=== PATIENT | male | born 1955 | race Caucasian/White ===

== ENCOUNTER 2016-07-31 12:04 | Day surgery (SDC) | payer OTHER ==
[2016-07-31] MEDS ORDERED: MIDAZOLAM 2 MG/2 ML VIAL IVP ONE (12:08)
[2016-07-31] MEDS ORDERED: NS 1,000 ML IV ONE (12:08)
[2016-07-31] MEDS ORDERED: BENZOCAINE UNIT DOSE SPRAY HURRICAINE MM ONE (12:08)
[2016-07-31] MEDS ORDERED: fentaNYL 100 MCG/2 ML INJ IVP ONE (12:08)
--- NOTE | 2016-07-31 18:22 | ECHO ---
[id number] [id number] + + [address] : : [facility] [address] : : [phone] + + Transesophageal Echocardiographic Report + ------+ :Name: NIKOLAS SKY WStudy Date: 07/31/2016 01:30 PM : : Hospital Admission Number: [id number] Locatio n: CVC: :: 1955 Gender: Male : :Age: 61 yrs Race: WH : :Reason For Study: Eval Aortic Valve : :History: Murmur, AI : + ------+ Left Ventricle There is mild concentric left ventricular hypertrophy. The left ventricular ejection fraction is normal. Atria Injection of contrast documented no interatrial shunt. The interatrial septum is intact with no evidence for an atrial septal defect. Mitral Valve The mitral valve is normal in structure and function. There is no evidence of mitral valve prolapse. There is no mitral valve stenosis. There is no mitral regurgitation noted. Tricuspid Valve The tricuspid valve is normal in structure and function. There is trace tricuspid regurgitation. Aortic Valve The aortic valve is trileaflet. There is a mild to moderate, hypermobile echodensity which appears on the right coronary cusp. There is no aortic stenosis. Severe aortic regurgitation. Pulmonic Valve The pulmonic valve is normal in structure and function. Pericardium There is no pericardial effusion. Conclusion A 2D transesophageal echocardiogram with color flow Doppler was performed. The left ventricular ejection fraction is normal. There is mild concentric left ventricular hypertrophy. Injection of contrast documented no interatrial shunt. The interatrial septum is intact with no evidence for an atrial septal defect. The mitral valve is normal in structure and function. The tricuspid valve is normal in structure and function. There is trace tricuspid regurgitation. The aortic valve is trileaflet. There is a mild to moderate, hypermobile echodensity which appears on the right coronary cusp. There is no aortic stenosis. Severe aortic regurgitation is present. The patient will have blood cultures performed, and if negative the patient could be considered for cardiac cath to rule out coronary disease prior to aortic valve replacement surgery. Final Reading Physician: Ammon Shoemaker signed on 07/31/2016 06:21 PM Ordering Physician: Grzegorz Duncan Performed By: Grzegorz Duncan MD
== END 2016-07-31 17:27 | disposition home or self-care (01) ==
LOC: FCATH 12:04
PROVIDERS: ATTEND Internal Medicine Cardiovascular Disease
PROC: B245ZZ4 Ultrasonography of Left Heart, Transesophageal (ICD-10-PCS; principal; 2016-07-31)
DX: I35.1 Nonrheumatic aortic (valve) insufficiency (principal); I25.10 Atherosclerotic heart disease of native coronary artery without angina pectoris; I10 Essential (primary) hypertension; E78.4 Other hyperlipidemia; I77.9 Disorder of arteries and arterioles, unspecified; Z86.73 Personal history of transient ischemic attack (TIA), and cerebral infarction without residual deficits; Z82.49 Family history of ischemic heart disease and other diseases of the circulatory system
CPT/HCPCS: J2250; J3010

== ENCOUNTER 2016-08-06 09:49 | Day surgery (SDC) | payer OTHER ==
[2016-08-06] MEDS ORDERED: diphenhydrAMINE 25 MG CAP PO ONE ×2 (09:50→10:09)
[2016-08-06] MEDS ORDERED: NS 1,000 ML IV ONE (09:50)
[2016-08-06] MEDS ORDERED: DIAZEPAM 5 MG TAB PO ONE (09:50)
[2016-08-06] MEDS ORDERED: ASPIRIN EC 325 MG TAB PO ONE ×2 (09:50→10:09)
[2016-08-06] MEDS ORDERED: FAMOTIDINE 20 MG TAB PO ONE (09:50)
[2016-08-06] MEDS ORDERED: DIAZEPAM 5 MG TAB ONE (10:09)
[2016-08-06] MEDS ORDERED: FAMOTIDINE 20 MG TAB ONE (10:09)
--- NOTE | 2016-08-06 10:10 | CPEKG ---
Heart Rate: 68 RR Interval: 882 P-R Interval: 200 QRSD Interval: 110 QT Interval: 400 QTC Interval: 426 P Ingalls: -11 QRS Ingalls: -18 T Wave Ingalls: 29 EKG Severity - ABNORMAL ECG - EKG Impression: SINUS RHYTHM EKG Impression: NONSPECIFIC INTRAVENTRICULAR CONDUCTION DELAY Electronically Signed By: Kwesi Ospina 06-Aug-2016 10:48:57
[2016-08-06 10:29] LABS: % IMMATURE GRANULYOCYTES 0.2 % (0.0-1.1); ABSOLUTE IMMATURE GRANULOCYTES 0.01 10^3/uL (0.00-0.10); ADD DIFF? NO; ADD MORPH? NO; ADD SCAN? NO; ATYPICAL LYMPHOCYTE FLAG 10 (0-99); FRAGMENT RBC FLAG 0 (0-99); HEMOGLOBIN 12.3 g/dL (13.7-17.5); LEFT SHIFT FLG 0 (0-99); LIPEMIA HEMOLYSIS FLAG 90 (0-99); MEAN CELL HEMOGLOBIN 30.2 pg (27.9-34.1); MEAN CELL HEMOGLOBIN CONCENTR. 34.2 g/dL (32.4-36.7); MEAN CELL VOLUME 88.5 fL (81.5-99.8); PLATELET CLUMPS FLAG 0 (0-99); PLATELET COUNT 207 10^3/uL (150-400); RED BLOOD CELL COUNT 4.07 10^6/uL (4.40-6.38); RED CELL DISTRIBUTION WIDTH 12.8 % (11.5-15.2)
[2016-08-06 10:40] LABS: ANION GAP 10 mEq/L (8-16); CALCIUM 9.6 mg/dL (8.5-10.4); CARBON DIOXIDE 22 mEq/l (22-31); CHLORIDE 109 mEq/L (97-110); CHOLESTEROL 126 mg/dL (140-220); CHOLESTEROL/HDL RATIO 3.32 RATIO (1.00-4.97); CREATININE 1.1 mg/dL (0.7-1.3); GLOMERULAR FILTRATION RATE > 60; GLUCOSE 92 mg/dL (70-100); HIGH DENSITY LIPOPROTEIN 38 mg/dL (40-65); LDL/HDL RATIO 1.74 RATIO (1.00-3.64); LOW DENSITY LIPOPROTEIN 66 mg/dL (80-100); MAGNESIUM 1.9 mg/dL (1.6-2.3); NON-HIGH DENSITY LIPOPROTEIN 88 mg/dL (90-129); POTASSIUM 4.1 mEq/L (3.5-5.2); SODIUM 141 mEq/L (134-144); TRIGLYCERIDE 114 mg/dL (40-150); VERY LOW DENSITY LIPOPROTEINS 22 mg/dL (8-25)
[2016-08-06] MEDS ORDERED: fentaNYL 100 MCG/2 ML INJ ONE ×3 (10:41→12:39)
[2016-08-06] MEDS ORDERED: LIDOCAINE 1% 300 MG/30 ML SDV ONE (10:41)
[2016-08-06] MEDS ORDERED: IOPAMIDOL (ISOVUE-370) 150 ML BTL IV ONE (10:42)
[2016-08-06] MEDS ORDERED: MIDAZOLAM 2 MG/2 ML VIAL ONE ×2 (10:42→11:25)
[2016-08-06 10:48] LABS: INR 1.1 (0.83-1.16); PROTIME(PATIENT) 14.1 SEC (12.0-15.0)
[2016-08-06] MEDS ORDERED: ATROPINE SULFATE 1 MG/10 ML SYR ONE (12:02)
[2016-08-06] MEDS ORDERED: fentaNYL 100 MCG/2 ML INJ IVP PRN (12:49)
--- NOTE | 2016-08-06 15:08 | CPIP ---
[f rep st] INVASIVE CARDIAC PROCEDURE DATE OF PROCEDURE: 08/06/2016 PROCEDURE: Left and right coronary arteriogram. COMPLICATIONS: None. CONDITION AT END OF STUDY: Excellent. INDICATIONS: The patient has wide open aortic insufficiency and has an abnormal calcium score with a calcium score of 500. He has been recommended to consider aortic valve replacement. He has wide open aortic insufficiency and a question of endocarditis. He has a mobile, possibly vegetative mass involving the aortic valve. The procedure was to do left and right coronary angiography. It was elected not to cross the aortic valve for fear of interfering with that vegetation and also not to do a left ventriculogram for fear of hurting him with embolic disease processes. He underwent the procedure with no complications. FINDINGS: ANGIOGRAPHY: 1. Left main coronary artery is normal. 2. Circumflex coronary artery is normal. 3. Left anterior descending artery is normal with no significant obstructive disease present at all. There is no significant plaque seen. 4. The right coronary artery is dominant and normal. Patient tolerated the procedure well and, at the time of dictation, is waking up from his anesthetic. /[id number]/MODL MTDD
== END 2016-08-06 18:23 | disposition home or self-care (01) ==
LOC: FCATH 09:49
PROVIDERS: ATTEND Internal Medicine
PROC: B2111ZZ Fluoroscopy of Multiple Coronary Arteries using Low Osmolar Contrast (ICD-10-PCS; principal; 2016-08-06)
DX: I35.1 Nonrheumatic aortic (valve) insufficiency (principal); I25.10 Atherosclerotic heart disease of native coronary artery without angina pectoris; I10 Essential (primary) hypertension; E78.4 Other hyperlipidemia
CPT/HCPCS: J0461; J1644; J2250; J3010; Q9967

== ENCOUNTER → 2016-08-24 | Outpatient (CLI) | payer OTHER | LOC: FIMAGING 11:46 | PROVIDERS: ATTEND Thoracic Surgery (Cardiothoracic Vascular Surgery) | DX: Z01.811 Encounter for preprocedural respiratory examination (principal); I35.1 Nonrheumatic aortic (valve) insufficiency; I25.10 Atherosclerotic heart disease of native coronary artery without angina pectoris ==

== ENCOUNTER 2016-08-31 05:55 | Inpatient (IN) | payer OTHER ==
[2016-08-31] MEDS ORDERED: NOREPINEPHRINE BITARTRATE 16 MG in NS 250 ML IV ONE (06:00)
[2016-08-31] MEDS ORDERED: SODIUM BICARBONATE 20 MEQ, LIDOCAINE 1% 10 ML in NORMOSOL-R 1,000 ML MISC ONE (06:00)
[2016-08-31] MEDS ORDERED: AMINOCAPROIC ACID 5 GM/20 ML VIAL IV ONE (06:00)
[2016-08-31] MEDS ORDERED: CITRATE DEXTROSE SOLN 500 ML BAG MISC ONE (06:00)
[2016-08-31] MEDS ORDERED: niCARdipine/NACL 200 ML IV ONE ×2 (06:00→23:00)
[2016-08-31] MEDS ORDERED: ceFAZolin 2 GM/DEXTROSE 100 ML IV ONE (06:00)
[2016-08-31] MEDS ORDERED: PHENYLEPHRINE HCL 50 MG in NS 250 ML IV ONE (06:00)
[2016-08-31] MEDS ORDERED: INSULIN REGULAR HUMAN 100 UNIT in NS 100 ML IV ONE (06:00)
[2016-08-31] MEDS ORDERED: MANNITOL 25% 12.5 GM/50 ML VIAL IV ONE (06:00)
[2016-08-31] MEDS ORDERED: LR 1,000 ML IV ONE (06:28)
[2016-08-31] MEDS ORDERED: LIDOCAINE 1% 2 ML INJ ID PRN (06:28)
[2016-08-31] MEDS ORDERED: PROTAMINE SULFATE 50 MG/5 ML VIAL IVP ONE (06:49)
[2016-08-31] MEDS ORDERED: ALBUMIN 5% 250 ML BOTTLE IV ONE ×2 (06:49→11:00)
[2016-08-31] MEDS ORDERED: MILRINONE/DEXTROSE/100 ML BAG IV ONE (06:50)
[2016-08-31] MEDS ORDERED: CALCIUM CHLORIDE 1 GM/10 ML INJ ONE (06:50)
[2016-08-31] MEDS ORDERED: POTASSIUM Cl (KCl) 20 MEQ/50 ML BAG IV ONE (06:50)
[2016-08-31] MEDS ORDERED: LIDOCAINE 2% 100 MG/5 ML SYR ONE ×2 (06:51→07:23)
[2016-08-31] MEDS ORDERED: AMINOCAPROIC ACID 5 GM/20 ML VIAL ONE (06:51)
[2016-08-31] MEDS ORDERED: NA BICARBONATE 50 MEQ/50 ML VIAL ONE (06:51)
[2016-08-31] MEDS ORDERED: CITRATE DEXTROSE SOLN 500 ML BAG ONE (06:52)
[2016-08-31] MEDS ORDERED: niCARdipine/NACL/200 ML BAG IV ONE ×2 (06:52→21:45)
[2016-08-31] MEDS ORDERED: DOPamine/DEXTROSE/250 ML BAG IV ONE (06:52)
[2016-08-31] MEDS ORDERED: MAGNESIUM SULFATE 1 GM/2 ML VIAL ONE (06:53)
[2016-08-31] MEDS ORDERED: ADENOSINE 6 MG/2 ML VIAL ONE (06:53)
[2016-08-31] MEDS ORDERED: methylPREDNISolone SOD SUCC 1 GM/8 ML VIAL ONE (06:53)
[2016-08-31] MEDS ORDERED: AMIODARONE HCL 150 MG/3 ML VIAL ONE (06:53)
[2016-08-31] MEDS ORDERED: HEPARIN 10,000 UNIT/10 ML MDV ONE (06:54)
[2016-08-31] MEDS ORDERED: ceFAZolin 1 GM VIAL ONE (06:54)
[2016-08-31] MEDS: MUPIROCIN 2% 22 GM OINT NS SCH ×3 (07:00→20:34)
--- NOTE | 2016-08-31 07:08 | PDANEPAE ---
ANE History of Present Illness severe AI, ? question vegitation, ANE Past Medical History - Cardiovascular History Cardiovascular History Comment: CAD-mild - Pulmonary History Hx COPD: No Hx Asthma/Reactive Airway Disease: No Hx Recent Upper Respiratory Infection: No Hx Oxygen in Use at Home: No Hx Sleep Apnea: No Sleep Apnea Screening Result - Last Documented: Positive Pulmonary History Comment: BENJAMÍN TRIGGERS - Neurologic History Hx Cerebrovascular Accident: Yes Hx Seizures: No Hx Dementia: No Neurologic History Comment: SMALL STROKE 2003-zero residual - Endocrine History Hx Diabetes: No - Renal History Hx Renal Disorders: No Renal History Comment: ENLARGED PROSTATE - Liver History Hx Hepatic Disorders: No - Neurological & Psychiatric Hx Hx Neurological and Psychiatric Disorders: No - Cancer History Hx Cancer: No - Congenital Disorder History Hx Congenital Disorders: No - GI History Hx Gastrointestinal Disorders: Yes Gastrointestinal History Comment: REFLUX - Other Health History Other Health History: NONE - Chronic Pain History Chronic Pain: No - Surgical History Prior Surgeries: CARDIAC CATH 08/06/16. HERNIA REPAIR 2013 ANE Review of Systems - Exercise capacity METS (RN): 4 METS ANE Patient History - Allergies Allergies/Adverse Reactions: No Known Allergies Allergy (Verified 08/27/16 14:53) - Home Medications Home Medications: Advil 400 mg PO PRN PRN 07/31/16 [Last Taken 08/27/16] Aspirin 81mg (*) 81 mg PO DAILY 07/31/16 [Last Taken 08/27/16] Co Q-10 100 mg Softgel 100 mg PO DAILY 07/31/16 [Last Taken 08/27/16] Ezetimibe 10 mg PO DAILY 07/31/16 [Last Taken 08/30/16] Lansoprazole [Prevacid] 30 mg PO PRN 07/31/16 [Last Taken 08/30/16] Latanoprost 0.005% EACHEYE DAILY 07/31/16 [Last Taken 08/30/16] Metoprolol Succinate Xr 100 mg PO DAILY 07/31/16 [Last Taken 08/30/16] Multivitamin PO DAILY 07/31/16 [Last Taken 08/27/16] [place] 3-E 07/31/16 [Last Taken 08/27/16] Rosuvastatin Calcium 40 mg PO DAILY 07/31/16 [Last Taken 07/30/16 08:00] Valsartan 160 mg PO DAILY 07/31/16 [Last Taken 07/30/16 08:00] - NPO status NPO Since - Liquids (Date): 08/30/16 NPO Since - Liquids (Time): 22:00 NPO Since - Solids (Date): 08/30/16 NPO Since - Solids (Time): 20:00 - Anes Hx Anes Hx: no prior problems - Smoking Hx Smoking Status: Former smoker Marijuana use: No - Alcohol Use Alcohol Use: None - Family Anes Hx Family Hx Anesthesia Complications: NONE ANE Labs/Vital Signs - Labs - CBC WBC: reviewed and OK, mild anemia - Vital Signs Blood Pressure: 153/78 Heart Rate: 66 Respiratory Rate: 16 O2 Sat (%): 95 Height: 178 cm Weight: 86.2 kg ANE Physical Exam - Airway Neck exam: FROM Mallampati Score: Class 1 Mouth exam: normal dental/mouth exam - Pulmonary Pulmonary: no respiratory distress - Cardiovascular Cardiovascular: regular rate and rhythym, systolic murmur - ASA Status ASA Status: III ANE Anesthesia Plan Anesthesia Plan: general endotracheal anesthesia Lines/Monitors: arterial line, central line, RYANN (GA, ETT-likely OR extubation, QL CVP, a-line by CTS, BIS, RYANN)
[2016-08-31] MEDS ORDERED: MIDAZOLAM 2 MG/2 ML VIAL IVP ONE (07:10)
--- NOTE | 2016-08-31 07:10 | PDHPUP ---
History & Physical Update H&P update statement: This history and physical update is based on an assessment of the patient which was completed after admission or registration (within 24 hours), but prior to the surgery/procedure. H&P update: H&P reviewed & patient examined, no change in patient's condition since H&P completed
[2016-08-31] MEDS ORDERED: ROCURONIUM 100 MG/10 ML VIAL ONE (07:22)
[2016-08-31] MEDS ORDERED: REMIFENTANIL HCL 1 MG VIAL ONE (07:22)
[2016-08-31] MEDS ORDERED: ONDANSETRON 4 MG/2 ML VIAL ONE (07:22)
[2016-08-31] MEDS ORDERED: ROCURONIUM 50 MG/5 ML VIAL ONE (07:22)
[2016-08-31] MEDS ORDERED: DEXAMETHASONE 4 MG/ML VIAL ONE ×2 (07:22)
[2016-08-31] MEDS ORDERED: PROPOFOL/EMULSION 500 MG/50 ML BOTTLE IV ONE (07:22)
[2016-08-31] MEDS ORDERED: LIDOCAINE HCL 160 MG/4 ML LTA KIT TP ONE (07:23)
[2016-08-31] MEDS ORDERED: fentaNYL 100 MCG/2 ML INJ ONE ×2 (07:24)
[2016-08-31] MEDS ORDERED: MIDAZOLAM 2 MG/2 ML VIAL ONE ×2 (07:25)
[2016-08-31] MEDS ORDERED: MINERAL OIL 10 ML VIAL ONE (07:40)
[2016-08-31] MEDS ORDERED: PHENYLEPHRINE HCL 100 MCG/ML SYR ONE (08:20)
[2016-08-31] MEDS ORDERED: fentaNYL 50 MCG PATCH TD SCH (08:45)
[2016-08-31] MEDS ORDERED: BUPIVACAINE/EPI 0.25% 30 ML SDV ONE (09:05)
[2016-08-31] MEDS ORDERED: PROPOFOL 200 MG/20 ML VIAL ONE (10:06)
[2016-08-31] MEDS ORDERED: SUGAMMADEX SODIUM 200 MG/2 ML VIAL IVP ONE (10:38)
[2016-08-31] MEDS ORDERED: DEXMEDETOMIDINE HCL 400 MCG in NS 100 ML IV SCH (11:00)
[2016-08-31] MEDS ORDERED: MAGNESIUM SULF 2 GM/WATER 50 ML BAG IV ONE (11:00)
--- NOTE | 2016-08-31 11:06 | POSTOPPROG ---
Post Op Note Date of Operation: 08/31/16 Surgeon: Alan Landa Consumer Experience Consultant: Poncho Anesthesiologist: Cdoy Anesthesia: GET(General Endotracheal) Pre-op Diagnosis: AI/Asc enlargement, possible paramembranous VSD Post-op Diagnosis: No VSD found Inf/Abcess present in the surg proc area at time of surgery?: No EBL: Minimal Drains: Other (2 blakes)
[2016-08-31] MEDS ORDERED: D50W 25 GM/50 ML SYR IVP PRN (11:09)
[2016-08-31] MEDS ORDERED: fentaNYL 100 MCG/2 ML INJ IVP PRN (11:09)
[2016-08-31] MEDS ORDERED: ACETAMINOPHEN 325 MG TAB PO PRN (11:09)
[2016-08-31] MEDS ORDERED: MEPERIDINE 25 MG/ML SYR IVP PRN (11:09)
[2016-08-31] MEDS ORDERED: SODIUM CL NASAL 45 ML BTL EACHNARE PRN (11:09)
[2016-08-31] MEDS ORDERED: MAGNESIUM HYDROXIDE 30 ML UDCUP PO PRN (11:09)
[2016-08-31] MEDS ORDERED: LACTULOSE 20 GM/30 ML UDCUP PO PRN (11:09)
[2016-08-31] MEDS ORDERED: METOCLOPRAMIDE 10 MG/2 ML VIAL IVP PRN (11:09)
[2016-08-31] MEDS ORDERED: POLYETHYLENE GLYCOL 3350 17 GM PKT PO PRN (11:09)
[2016-08-31] MEDS ORDERED: ONDANSETRON DISINTEGRATING 4 MG TAB PO PRN (11:09)
[2016-08-31] MEDS ORDERED: CEPACOL LOZENGE PO PRN (11:09)
[2016-08-31] MEDS ORDERED: POTASSIUM Cl (KCl) 50 ML IV PRN (11:09)
[2016-08-31] MEDS ORDERED: ACETAMINOPHEN 650 MG SUPP PR PRN (11:09)
[2016-08-31] MEDS ORDERED: PANTOPRAZOLE SODIUM 40 MG in NS 100 ML IV ONE (11:09)
[2016-08-31] MEDS ORDERED: BISACODYL 10 MG SUPP PR PRN (11:09)
[2016-08-31] MEDS ORDERED: MAGNESIUM SULF 2 GM/WATER 50 ML IV ONE (11:09)
[2016-08-31] MEDS ORDERED: ONDANSETRON 4 MG/2 ML VIAL IVP PRN (11:09)
[2016-08-31] MEDS ORDERED: NS 1,000 ML IV SCH (11:15)
[2016-08-31] MEDS ORDERED: INSULIN REGULAR HUMAN 100 UNIT in NS 100 ML IV SCH (11:30)
[2016-08-31 11:49] LABS: CALCULATED OXYGEN SATURATION 93 % (92-95)
[2016-08-31] MEDS: ALBUMIN 5% 250 ML IV PRN ×2 (11:58→12:50)
[2016-08-31] MEDS: KETOROLAC 15 MG/1 ML SDV IVP SCH ×3 (12:09→23:02)
[2016-08-31] MEDS: ceFAZolin 2 GM/DEXTROSE 100 ML IV SCH ×2 (13:20→20:33)
--- NOTE | 2016-08-31 16:09 | GCON ---
[f rep st] CONSULTATION PULMONARY/CRITICAL CARE CONSULTATION DATE OF CONSULTATION: 08/31/2016 REFERRING PHYSICIAN: Alan Landa DO REASON FOR REFERRAL: Evaluation and management of postop respiratory status and anemia. HISTORY: The patient is a 61-year-old male with a history of known severe AI, who was found on recent surveillance echocardiogram to have possible vegetation. Blood cultures were done and were negative. He was seen in consultation by Dr. Landa, who recommended an aortic valve replacement, as well as ascending artery replacement due to dilatation of the ascending aorta. Surgery was performed this morning and was uneventful. The patient has been extubated. He is requiring supplemental oxygen. He is somnolent and minimally arousable. PAST MEDICAL HISTORY: 1. Aortic insufficiency. 2. Carotid artery disease status post CVA 10 years ago with no significant residua. 3. Hypertension. 4. Dyslipidemia. MEDICATIONS: At the time of admission: Valsartan, rosuvastatin, metoprolol, Zetia, lansoprazole, aspirin. ALLERGIES: None. SOCIAL HISTORY: The patient has never smoked. He is a vegetarian. He has minimal alcohol use. He lives in [place] with his and children. FAMILY HISTORY: Remarkable for acute myocardial infarction in his sister at age 40. REVIEW OF SYSTEMS: Review of systems is unobtainable as the patient is still quite somnolent. PHYSICAL EXAMINATION: GENERAL: The patient is minimally arousable and does not reliably follow commands. VITAL SIGNS: Blood pressure is 126/72, with a heart rate of 70. His temperature is 35.5, his oxygen saturations are 97% on 10 L. HEENT: Normocephalic and atraumatic. No icterus. NECK: No JVD. Trachea is midline. CHEST: Some sonorous respirations, but no wheezes. CARDIAC: Regular rate and rhythm without murmur. ABDOMEN: Soft and nontender. Bowel sounds are present. EXTREMITIES: No clubbing, cyanosis, or edema. LABORATORY: Hemoglobin is 9.5, down from 12.3 on August 06. A chemistry group shows a blood sugar of 156, and is otherwise unremarkable. ASSESSMENT: 1. Status post aortic valve replacement and ascending aortic graft placement. The patient is doing well postoperatively, is extubated. Hemodynamics are stable with minimal active bleeding. 2. Anemia: The patient has a significant drop in his hemoglobin since his preoperative evaluation. This anemia is likely due to expected perioperative blood loss. 3. Hyperglycemia: The patient does not have a history of hyperglycemia. This may be due in part to dextrose containing IV fluids. RECOMMENDATIONS: 1. Continue ICU monitoring of respiratory status. It is unlikely that he will require re-intubation. 2. Follow hemoglobin. 3. Follow blood sugars and treat with insulin if they remain elevated. /[id number]/MODL MTDD
--- NOTE | 2016-08-31 19:45 | GOP ---
[f rep st] OPERATIVE REPORT DATE OF OPERATION: 08/31/2016 SURGEON: Alan Landa DO ELECTRICIAN DECK: Zhou Isaac P.A.-C. ANESTHESIOLOGIST: Wes Ross M.D. PREOPERATIVE DIAGNOSIS: Severe aortic insufficiency with moderate ascending aortic enlargement and questionable ventricular septal defect seen on prior echoes as an outpatient. POSTOPERATIVE DIAGNOSIS: Severe aortic insufficiency with moderate ascending aortic enlargement and questionable ventricular septal defect seen on prior echoes as an outpatient. No perimembranous ve ntricular septal defect or ventricular septal defect noted with intraoperative transesophageal echo or with direct visualization. Otherwise, aortic and insufficiency and moderate ascending aortic enl argement. PROCEDURE PERFORMED: 1. Aortic valve replacement with a #25 Magna valve. 2. Exploration for perimembranous ventricular septal defect. 3. Replace ascending aorta with #24 Hemashield graft. 4. Ligate left atrial appendage prophylactically with AtriClip. FINDINGS: DESCRIPTION OF PROCEDURE: The patient was consented for a surgical intervention. He was prepped an d draped in a sterile classical manner. Timeout was confirmed. Sternotomy was performed. He was heparinized, cannulated using transverse and bicaval cannulas. Th e aorta was moderately enlarged at 4.2 cm externally. Echo confirmed severe AI with a mobile body o n the aortic leaflet edge. LV function was normal. No VSD could be found intraoperatively by Carol kamara. Cardiopulmonary bypass was begun. Retrograde cardioplegia was used to arrest the heart as well as d irect antegrade coronary perfusion after opening the aorta down the coronary ostia. Topical hypothe rmia in the form of slush and systemic cooling were also begun. We transected the aorta at the inno minate artery where it tapered to normal and at the sinotubular junction. The sinuses did not appea r to be enlarged. They were thick walled and appeared to be normal. The coronary ostia were in a n ormal position. It is a trileaflet valve with what appeared to be dehiscence of several areas, part icularly between the left and right commissure, and there was a free mobile edge of leaflet which wa s likely what was seen as a vegetation on the echo. The valve was easily excised the LV chamber was irrigated. I then, because I transected the aorta, had excellent visualization in the interventricular septum a nd with direct visualization, no defect was identified. I was unable to pass a probe across. In fa ct, the membranous septum was large, intact and normal appearing. I then placed a 25 mm Magna valve in a supra-annular position with interrupted 2-0 Tycron pledgeted mattress sutures. A 24 Hemashiel d graft was cut appropriately and sewn distally and proximally with continuous running 4-0 Prolene s uture reinforced with BioGlue. I then placed a 40 mm AtriClip across the base of the left atrial ap pendage. An aortic vent had been placed in the graft. Deairing was performed prior to removing the cross-clamp through the apex and LV sump. The cross-clamp was then removed with suction on the asc ending aortic vent and LV sump. We then intermittently aspirated through the apex with the sump off in deep Trendelenburg until no further air was identified. The patient developed spontaneous sinus rhythm. When no further air was seen, he was weaned in Trendelenburg. The apex was over sewn. Two ventricu lar pacing wires were placed. He was easily weaned from bypass in sinus rhythm. Valvular function appeared to be excellent, without any perivalvular leak. Heparin was reversed with protamine. The cannula was removed and oversewn. Two ventricular pacing wires were placed. The thymic fat and per icardium were closed over a single drain in the pericardium and 1 in the anterior mediastinum. The sternum was closed in standard fashion. The patient was returned to the ICU in stable condition. /[id number]/MODL
[2016-08-31] MEDS: HYDROCODONE/APAP 5/325 TAB PO PRN (20:33)
[2016-08-31] MEDS: SENNOSIDES/DOCUSATE SODIUM TAB PO SCH (20:33)
[2016-08-31] MEDS: AMIODARONE HCL 200 MG TAB PO SCH (20:33)
[2016-08-31] MEDS ORDERED: LATANOPROST 0.005% 2.5 ML OPHT DROPS EACHEYE SCH (21:00)
[2016-08-31 21:14] LABS: HEMATOCRIT 27.7 % (40.0-51.0); HEMOGLOBIN 9.7 g/dL (13.7-17.5); MEAN CELL VOLUME 88.5 fL (81.5-99.8); RED BLOOD CELL COUNT 3.13 10^6/uL (4.40-6.38); RED CELL DISTRIBUTION WIDTH 13.2 % (11.5-15.2)
[2016-08-31] MEDS ORDERED: niCARdipine/NACL 200 ML IV SCH (23:00)
--- NOTE | 2016-08-31 23:08 | POSTANESTH ---
Post Anesthetic Evaluation Cardiovascular Status: Normal, Stable Respiratory Status: Tx Decrease in SpO2 Level of Consciousness/Mental Status: Can Participate in Eval, Mildly Sleepy, Arousable Pain Control: Adequate, Prn Tx Ordered Nausea/Vomiting Control: Adequate, Prn Tx Ordered Complications Possibly Related to Anesthesia: None Noted
[2016-09-01] MEDS: HYDROCODONE/APAP 5/325 TAB PO PRN ×5 (00:25→16:01)
[2016-09-01 05:47] LABS: % IMMATURE GRANULYOCYTES 0.5 % (0.0-1.1); ABSOLUTE IMMATURE GRANULOCYTES 0.07 10^3/uL (0.00-0.10); ADD DIFF? NO; ADD MORPH? NO; ADD SCAN? NO; ATYPICAL LYMPHOCYTE FLAG 0 (0-99); FRAGMENT RBC FLAG 0 (0-99); HEMATOCRIT 27.9 % (40.0-51.0); HEMOGLOBIN 9.5 g/dL (13.7-17.5); LEFT SHIFT FLG 20 (0-99); LIPEMIA HEMOLYSIS FLAG 90 (0-99); MEAN CELL HEMOGLOBIN 30.4 pg (27.9-34.1); MEAN CELL HEMOGLOBIN CONCENTR. 34.1 g/dL (32.4-36.7); MEAN CELL VOLUME 89.1 fL (81.5-99.8); MEAN PLATELET VOLUME 9.4 fL (8.7-11.7); PLATELET CLUMPS FLAG 0 (0-99); PLATELET COUNT 125 10^3/uL (150-400); RED BLOOD CELL COUNT 3.13 10^6/uL (4.40-6.38); RED CELL DISTRIBUTION WIDTH 13.4 % (11.5-15.2)
[2016-09-01 06:04] LABS: ANION GAP 8 mEq/L (8-16); CALCIUM 8.5 mg/dL (8.5-10.4); CARBON DIOXIDE 20 mEq/l (22-31); CHLORIDE 112 mEq/L (97-110); CREATININE 0.9 mg/dL (0.7-1.3); GLOMERULAR FILTRATION RATE > 60; GLUCOSE 108 mg/dL (70-100); POTASSIUM 4.5 mEq/L (3.5-5.2); SODIUM 140 mEq/L (134-144)
[2016-09-01] MEDS: ceFAZolin 2 GM/DEXTROSE 100 ML IV SCH ×3 (06:20→21:05)
[2016-09-01] MEDS: HEPARIN 5,000 UNIT/0.5 ML SYR SC SCH ×3 (06:21→21:01)
[2016-09-01] MEDS: KETOROLAC 15 MG/1 ML SDV IVP SCH ×3 (06:21→17:30)
--- NOTE | 2016-09-01 07:17 | SOAPPROG ---
SOAP Progress Note Assessment/Plan: Assessment: POD#1 AVR#25 Magna bioprosthesis, asc aortic replacement #24 hemashield graft, exploration for VSD, AtriClip ligation of left atrial appendage Severe AI with ? vegetation and dilated ascending aorta - Torn mobile leaflet edge mimicking vegetation. No enlargement of sinuses. Valve replaced with bioprosthesis and asc ao replaced with dacron interposition graft. Extubated in the OR. Stable early postop course. No pressor support, tachyarrhythmias, backup pacing, or significant volume overload. Antithrombotic prophylaxis with ASA alone pending stability of rhythm. AF prophylaxis with oral amiodarone and BB uptitrated as tolerated. HTN - Preop control with BB and ARB. Early postop control with nicardipine gtt. Transition to BB in progress. Use of ARB if sufficient BP and stable renal fx. Suspected membranous VSD - Not seen by intraop RYANN or direct exploration. Cerebrovascular disease s/p remote CVA without significant residua (rt sided dysesthesias) - Stable. No apparent focal neurologic deficits. Acute expected blood loss anemia - Stable. No blood products transfused. No evidence active bleeding. VTE prophylaxis with SQ hep. Postop pain - Controlled on multimodal analgesia. Plan d/c duragesic patch once CTs out, hold NSAID for Cr > 1.1. BPH with LUTS of urgency and straining - Stable without meds. No difficulty voiding currently. To be monitored closely for retention. Plan: Routine POD#1 orders re lines, drains, orals and mobility. Metoprolol tartrate 25 mg x 1. Reduce nicardipine gtt by 50% q 30min. Remove jonelle after off nicardipine. Begin BID metoprolol tonight once response to 25 mg dose known. Lasix prn CVP > 17. Probable tx to PCU later this am. 09/01/16 07:16 Subjective: Feels pretty good at rest. Slightly woozy transferring OOB to chair. Thirsty. No nausea. Relieved that able to void well without whitfield. Objective: Vital Signs Temp Pulse Resp BP Pulse Ox 36.6 C 94 19 114/67 91 L 09/01/16 07:00 09/01/16 07:00 09/01/16 07:00 09/01/16 07:00 09/01/16 07:00 Laboratory Results 09/01/16 05:35 09/01/16 05:35 08/31/16 09/01/16 09/02/16 05:59 05:59 05:59 Intake Total 1936.3 200 Output Total 3175 Balance -1238.7 200 IV nicardipine at 2-4 mg/h (currently 4 mg/h) for MAP < 85. Stable HR and rhythm. Rates 70s-80s overnoc. No ectopy. Modest suppl O2 req. Excellent fluid balance/UOP. Whitfield out. CXR-> No PTX, no pulm vasc congestion, no pleural effusions, improved LLL aeration No sig CTOP. Physical Exam - Physical Exam General Appearance: alert, no apparent distress Respiratory: lungs clear (excellent insp effort), other (blakes x 2 y-d to pleurovac, serosang drainage, +tidal, no air leak) Cardiac/Chest: regular rate, rhythm, other (Sternotomy CDI. Vwires intact.) Abdomen: normal bowel sounds, non-tender, soft Skin: warm/dry Extremities: swelling (trace) ICD10 Worksheet Patient Problems: Problems Problem Status Onset Acute blood loss anemia Acute S/P AVR (aortic valve replacement) Acute S/P aortic aneurysm repair Acute Ascending aorta dilatation Chronic Severe aortic insufficiency Chronic
[2016-09-01] MEDS ORDERED: traMADol 50 MG TAB PO PRN (08:00)
[2016-09-01] MEDS ORDERED: METOPROLOL TARTRATE 25 MG TAB PO ONE (08:00)
[2016-09-01] MEDS: PANTOPRAZOLE SODIUM 40 MG TAB PO SCH (08:10)
[2016-09-01] MEDS: ASPIRIN 81 MG CHEWABLE TAB PO SCH (08:10)
[2016-09-01] MEDS: AMIODARONE HCL 200 MG TAB PO SCH ×2 (08:10→21:02)
[2016-09-01] MEDS: MUPIROCIN 2% 22 GM OINT NS SCH ×2 (08:11→21:16)
[2016-09-01] MEDS: SENNOSIDES/DOCUSATE SODIUM TAB PO SCH ×2 (08:11→21:02)
[2016-09-01] MEDS: LATANOPROST 0.005% 2.5 ML OPHT DROPS EACHEYE SCH (08:52)
[2016-09-01] MEDS ORDERED: ASPIRIN 81 MG CHEWABLE TAB PO SCH (09:00)
[2016-09-01 11:38] LABS: POTASSIUM 4.4 mEq/L (3.5-5.2)
[2016-09-01 18:20] LABS: POTASSIUM 4.8 mEq/L (3.5-5.2)
[2016-09-01] MEDS: METOPROLOL TARTRATE 25 MG TAB PO SCH (21:02)
[2016-09-02] MEDS: KETOROLAC 15 MG/1 ML SDV IVP SCH ×2 (01:08→06:03)
[2016-09-02] MEDS: HEPARIN 5,000 UNIT/0.5 ML SYR SC SCH ×3 (06:02→21:23)
[2016-09-02] MEDS: HYDROCODONE/APAP 5/325 TAB PO PRN ×3 (06:34→21:25)
[2016-09-02 06:47] LABS: % IMMATURE GRANULYOCYTES 0.6 % (0.0-1.1); ABSOLUTE IMMATURE GRANULOCYTES 0.08 10^3/uL (0.00-0.10); ADD DIFF? NO; ADD MORPH? NO; ADD SCAN? NO; ATYPICAL LYMPHOCYTE FLAG 0 (0-99); FRAGMENT RBC FLAG 0 (0-99); HEMATOCRIT 26.9 % (40.0-51.0); HEMOGLOBIN 8.8 g/dL (13.7-17.5); LEFT SHIFT FLG 10 (0-99); LIPEMIA HEMOLYSIS FLAG 80 (0-99); MEAN CELL HEMOGLOBIN 30.1 pg (27.9-34.1); MEAN CELL HEMOGLOBIN CONCENTR. 32.7 g/dL (32.4-36.7); MEAN CELL VOLUME 92.1 fL (81.5-99.8); MEAN PLATELET VOLUME 10.3 fL (8.7-11.7); PLATELET CLUMPS FLAG 0 (0-99); PLATELET COUNT 131 10^3/uL (150-400); RED BLOOD CELL COUNT 2.92 10^6/uL (4.40-6.38); RED CELL DISTRIBUTION WIDTH 13.9 % (11.5-15.2)
[2016-09-02 06:58] LABS: ANION GAP 9 mEq/L (8-16); CALCIUM 8.5 mg/dL (8.5-10.4); CARBON DIOXIDE 23 mEq/l (22-31); CHLORIDE 105 mEq/L (97-110); CREATININE 1.2 mg/dL (0.7-1.3); GLOMERULAR FILTRATION RATE > 60; GLUCOSE 119 mg/dL (70-100); POTASSIUM 4.3 mEq/L (3.5-5.2); SODIUM 137 mEq/L (134-144)
--- NOTE | 2016-09-02 07:11 | SOAPPROG ---
SOAP Progress Note Assessment/Plan: POD#2 AVR#25 Magna bioprosthesis, asc aortic replacement #24 hemashield graft, exploration for VSD, AtriClip ligation of left atrial appendage Severe AI with ? vegetation and dilated ascending aorta - Torn mobile leaflet edge mimicking vegetation. No enlargement of sinuses. Valve replaced with bioprosthesis and asc ao replaced with dacron interposition graft. Extubated in the OR. Stable early postop course. No pressor support, tachyarrhythmias, backup pacing, or significant volume overload. Antithrombotic prophylaxis with ASA alone pending stability of rhythm. AF prophylaxis with oral amiodarone and BB uptitrated as tolerated. PW to be removed today. CTs to remain until at removal criteria. HTN - Preop control with BB and ARB. Early postop control with nicardipine gtt and weaned off. Continue BB. Use of ARB if sufficient BP and stable renal fx. Suspected membranous VSD - Not seen by intraop RYANN or direct exploration. Cerebrovascular disease s/p remote CVA without significant residua (rt sided dysesthesias) - Stable. No apparent focal neurologic deficits. Acute expected blood loss anemia - Stable. No blood products transfused. No evidence active bleeding. VTE prophylaxis with SQ hep. Postop pain - Controlled on multimodal analgesia. Plan d/c duragesic patch once CTs out, hold NSAID for Cr > 1.1. BPH with LUTS of urgency and straining - Stable without meds. No difficulty voiding currently. To be monitored closely for retention. Subjective: Denies pain/SOB. No complaints this morning. Objective: Vital Signs Temp Pulse Resp BP Pulse Ox 37.1 C 87 19 129/70 H 93 09/02/16 05:30 09/02/16 05:30 09/02/16 05:30 09/02/16 05:30 09/02/16 05:30 Laboratory Results 09/02/16 06:20 09/02/16 06:20 09/01/16 09/02/16 09/03/16 05:59 05:59 05:59 Intake Total 1936.3 1414.4 Output Total 3175 1035 Balance -1238.7 379.4 Physical Exam - Physical Exam General Appearance: WD/WN, alert, no apparent distress EENT: No scleral icterus (R), No scleral icterus (L) Neck: normal inspection Respiratory: lungs clear, normal breath sounds, No respiratory distress Cardiac/Chest: regular rate, rhythm Abdomen: non-tender, soft, No distended Skin: normal color, warm/dry Extremities: pedal edema (trace b/l) Neuro/Psych: no motor/sensory deficits, alert, normal mood/affect, oriented x 3 ICD10 Worksheet Patient Problems: Problems Problem Status Onset Acute blood loss anemia Acute S/P AVR (aortic valve replacement) Acute S/P aortic aneurysm repair Acute Ascending aorta dilatation Chronic Severe aortic insufficiency Chronic
[2016-09-02] MEDS ORDERED: FUROSEMIDE 40 MG/4 ML VIAL IVP ONE ×3 (07:16→17:46)
[2016-09-02] MEDS ORDERED: POTASSIUM CL 20 MEQ TAB PO ONE ×3 (07:16→21:17)
[2016-09-02] MEDS ORDERED: Herbals/Supplements -Info Only PO SCH (09:00)
[2016-09-02] MEDS: ASPIRIN 81 MG CHEWABLE TAB PO SCH (09:44)
[2016-09-02] MEDS: PANTOPRAZOLE SODIUM 40 MG TAB PO SCH (09:44)
[2016-09-02] MEDS: ROSUVASTATIN CALCIUM 40 MG TAB PO SCH (09:44)
[2016-09-02] MEDS: MULTIVITAMINS 1 EACH TAB PO SCH (09:44)
[2016-09-02] MEDS: LATANOPROST 0.005% 2.5 ML OPHT DROPS EACHEYE SCH (09:44)
[2016-09-02] MEDS: AMIODARONE HCL 200 MG TAB PO SCH ×2 (09:44→21:25)
[2016-09-02] MEDS: METOPROLOL TARTRATE 25 MG TAB PO SCH ×2 (09:44→21:24)
[2016-09-02] MEDS: EZETIMIBE 10 MG TAB PO SCH (09:44)
[2016-09-02] MEDS: OMEGA-3 FATTY ACIDS 1,000 MG CAP PO SCH (09:44)
[2016-09-02] MEDS: SENNOSIDES/DOCUSATE SODIUM TAB PO SCH ×3 (09:45→21:24)
--- NOTE | 2016-09-02 13:26 | ECHO ---
[id number] [id number] + + [address] : : [place] [address] : : [phone] + + Adult Echocardiographic Report + ------+ :Name: NIKOLAS SKY WStudy Date: 09/02/2016 09:55 AM : : Hospital Admission Number: [id number] Locatio n: 207: :: 1955 Gender: Male Height: 70 in : :Age: 61 yrs Race: WH Weight: 200 lb : :Reason For Study: Eval Valves : : BSA: 2.1 meters 2 : :History: S/P AVR, Ascending Ao, Hx of possible VSD : + ------+ MMode/2D Measurements \T\ Calculations IVSd: 0.94 cm LVIDd: 4.1 cm FS: 34.5 % Ao root diam: 2.6 cm LVPWd: 1.1 cm LVIDs: 2.7 cm EDV(Teich): 74.2 ml ACS: 1.2 cm ESV(Teich): 26.7 ml EF(Teich): 64.1 % LVOT diam: 2.3 cm LVOT area: 4.2 cm2 Normal Measurement Values: + + :LVIDd (3.5-5.7cm) IVSd (0.6-1.1cm) LVPWd (0.6-1.1cm) Aortic Root (2.0-3.7cm)Left Atrium (1.5-4.0cm): :LV Vol(d) (76-115ml) LV Vol(s) (29-48ml) Ejec Fraction (50-65%)PV [place] (0.6- 1.2m/s) TV [place] (0.4-1.0m/s) : :MV E [place] (0.8-1.0m/s)MV A [place] (0.3-1.0m/s)LVOT [place] (0.7-1.2m/s) Asc Ao [place] ( 0.9-1.8m/s) : + + Doppler Measurements \T\ Calculations MV E max rome: Ao V2 max: LV V1 mean PG: SV(LVOT): 113.0 cm/sec 224.0 cm/sec 3.2 mmHg 85.7 ml MV A max rome: Ao max P.1 mmHgLV V1 mean: 54.3 cm/sec Ao mean P.7 cm/sec MV E/A: 2.1 14.0 mmHg LV V1 VTI: 20.6 cm Ao V2 mean: 173.6 cm/sec Ao V2 VTI: 45.9 cm YAZMIN(I,D): 1.9 cm2 PA V2 max: 90.9 cm/sec PA max P.3 mmHg Left Ventricle The left ventricle is normal in size. There is normal left ventricular wall thickness. The left ventricular ejection fraction is normal. Ejection Fraction = 65%. The left ventricular wall motion is normal. Right Ventricle The right ventricle is normal in size and function. Atria The left atrial size is normal. Right atrial size is normal. Mitral Valve The mitral valve is normal in structure and function. There is no mitral valve stenosis. There is no mitral regurgitation noted. Tricuspid Valve The tricuspid valve is normal in structure and function. There is trace tricuspid regurgitation. Aortic Valve Trace aortic regurgitation. There is a bioprosthetic aortic valve. The prosthetic aortic valve is well-seated. The gradient is normal for this prosthetic aortic valve. Pulmonic Valve The pulmonic valve is normal in structure and function. There is no pulmonic valvular regurgitation. Great Vessels The aortic root is normal size. Pericardium/Pleural There is no pericardial effusion. Conclusion A complete two-dimensional transthoracic echocardiogram was performed (2D, M-mode, Doppler and color flow Doppler). The left ventricular ejection fraction is normal. Ejection Fraction = 65%. The left ventricular wall motion is normal. The right ventricle is normal in size and function. The mitral valve is normal in structure and function. The tricuspid valve is normal in structure and function. There is trace tricuspid regurgitation. There is a bioprosthetic aortic valve.Trace aortic regurgitation. The prosthetic aortic valve is well-seated. The gradient is normal for this prosthetic aortic valve. There is no pericardial effusion. There is no obvious evidence of a VSD by colorflow doppler. Final Reading Physician: Ammon Valle signed on 09/02/2016 01:24 PM Ordering Physician: Alan Landa Performed By: Jasbir Garcia, OVIDIOCS
[2016-09-02 20:50] LABS: POTASSIUM 4.1 mEq/L (3.5-5.2)
[2016-09-03] MEDS: HEPARIN 5,000 UNIT/0.5 ML SYR SC SCH ×3 (05:57→21:30)
--- NOTE | 2016-09-03 06:27 | SOAPPROG ---
SOAP Progress Note Assessment/Plan: Assessment: POD#3 AVR#25 Magna bioprosthesis, asc aortic replacement #24 hemashield graft, exploration for VSD, AtriClip ligation of left atrial appendage Severe AI with ? vegetation and dilated ascending aorta - Torn mobile leaflet edge mimicking vegetation. No enlargement of sinuses. Valve replaced with bioprosthesis and asc ao replaced with dacron interposition graft. Extubated in the OR. Stable early postop course. No pressor support, tachyarrhythmias, backup pacing, or significant volume overload. Antithrombotic prophylaxis with ASA alone pending stability of rhythm. AF prophylaxis with oral amiodarone and BB uptitrated as tolerated. HTN - Preop control with BB and ARB. Transition to home BB regimen in progress. Use of ARB if sufficient BP and stable renal fx. Suspected membranous VSD - Not seen by intraop RYANN or direct exploration. Cerebrovascular disease s/p remote CVA without significant residua (rt sided dysesthesias) - Stable. No apparent focal neurologic deficits. Acute expected blood loss anemia - Stable. No blood products transfused. No evidence active bleeding. VTE prophylaxis with SQ hep. Fe suppl x 2 weeks. Postop pain - Controlled on multimodal analgesia. BPH with LUTS of urgency and straining - Stable without meds. Plan: Remove drains. Stop duragesic patch. Inc Metoprolol tartrate to 37.5 mg BID. Cont Lasix x 1 more day. Cont inc mobility. Wean O2. Dispo - Anticipate home tomorrow. 09/03/16 06:23 Subjective: Doing alright. Improving bed/chair transfers. Walking with ease. Eager for shower. Awaiting BM. Comfortable w home tomorrow. Objective: Vital Signs Temp Pulse Resp BP Pulse Ox 36.6 C 78 16 130/80 H 96 09/03/16 04:00 09/03/16 04:00 09/03/16 04:00 09/03/16 04:00 09/03/16 04:00 09/02/16 09/03/16 09/04/16 05:59 05:59 05:59 Intake Total 1414.4 2100 Output Total 1265 2575 Balance 149.4 -475 Echo yest Nl BiV size and systolic fx, nl atrial size, nl bioprosthetic valve fx Holding SR, rates 70s-90s. Upward BP creep. Good response to IV diuresis. CTOP below removal criteria. CXR-> Improved aeration, no pulm vasc congestion, mild left basilar atelectasis. Labs stable. Cr normalized. Physical Exam - Physical Exam General Appearance: alert, no apparent distress Respiratory: crackles (left base), other (blakes x 2 to bulb suction, thin serosang drainage; both drains removed w/out difficulty.) Cardiac/Chest: regular rate, rhythm, other (Sternum grossly stable. Sternotomy CDI.) Abdomen: non-tender, soft Skin: warm/dry Extremities: swelling (trace) ICD10 Worksheet Patient Problems: Problems Problem Status Onset Acute blood loss anemia Acute S/P AVR (aortic valve replacement) Acute S/P aortic aneurysm repair Acute Ascending aorta dilatation Chronic Severe aortic insufficiency Chronic
[2016-09-03 06:31] LABS: HEMATOCRIT 25.4 % (40.0-51.0); HEMOGLOBIN 8.3 g/dL (13.7-17.5); MEAN CELL HEMOGLOBIN 30.2 pg (27.9-34.1); MEAN CELL HEMOGLOBIN CONCENTR. 32.7 g/dL (32.4-36.7); MEAN CELL VOLUME 92.4 fL (81.5-99.8); RED BLOOD CELL COUNT 2.75 10^6/uL (4.40-6.38); RED CELL DISTRIBUTION WIDTH 13.6 % (11.5-15.2)
[2016-09-03 06:37] LABS: ANION GAP 8 mEq/L (8-16); CALCIUM 8.5 mg/dL (8.5-10.4); CARBON DIOXIDE 25 mEq/l (22-31); CHLORIDE 105 mEq/L (97-110); GLOMERULAR FILTRATION RATE > 60; GLUCOSE 109 mg/dL (70-100); POTASSIUM 4.4 mEq/L (3.5-5.2); SODIUM 138 mEq/L (134-144)
[2016-09-03] MEDS: HYDROCODONE/APAP 5/325 TAB PO PRN ×2 (06:39→17:22)
[2016-09-03] MEDS: LATANOPROST 0.005% 2.5 ML OPHT DROPS EACHEYE SCH (06:40)
[2016-09-03] MEDS ORDERED: FUROSEMIDE 40 MG/4 ML VIAL IVP ONE (07:24)
[2016-09-03] MEDS ORDERED: FUROSEMIDE 40 MG TAB PO ONE (08:00)
[2016-09-03] MEDS ORDERED: POTASSIUM CL 10 MEQ TAB PO ONE (08:00)
[2016-09-03] MEDS ORDERED: METOPROLOL TARTRATE 25 MG TAB PO SCH (09:00)
[2016-09-03] MEDS: SENNOSIDES/DOCUSATE SODIUM TAB PO SCH ×2 (09:29→20:48)
[2016-09-03] MEDS: OMEGA-3 FATTY ACIDS 1,000 MG CAP PO SCH (09:30)
[2016-09-03] MEDS: MULTIVITAMINS 1 EACH TAB PO SCH (09:30)
[2016-09-03] MEDS: PANTOPRAZOLE SODIUM 40 MG TAB PO SCH (09:30)
[2016-09-03] MEDS: ROSUVASTATIN CALCIUM 40 MG TAB PO SCH (09:31)
[2016-09-03] MEDS: FERROUS SULFATE 325 MG TAB PO SCH ×2 (09:31→20:24)
[2016-09-03] MEDS: AMIODARONE HCL 200 MG TAB PO SCH ×2 (09:31→20:23)
[2016-09-03] MEDS: ASPIRIN 81 MG CHEWABLE TAB PO SCH (09:33)
[2016-09-03] MEDS: EZETIMIBE 10 MG TAB PO SCH (09:33)
[2016-09-03] MEDS ORDERED: IBUPROFEN 600 MG TAB PO PRN (12:00)
[2016-09-03] MEDS ORDERED: KETOROLAC 15 MG/1 ML SDV IVP SCH (12:00)
[2016-09-03] MEDS ORDERED: METOPROLOL TARTRATE 50 MG TAB PO SCH (21:00)
[2016-09-03] MEDS ORDERED: POTASSIUM CL 20 MEQ TAB PO ONE (21:00)
[2016-09-04 04:20] VITALS: RESP 18
[2016-09-04] MEDS: HEPARIN 5,000 UNIT/0.5 ML SYR SC SCH (05:05)
[2016-09-04 05:47] LABS: POTASSIUM 4.8 mEq/L (3.5-5.2)
[2016-09-04 07:12] VITALS: BP 122/84; PULSE 84; TEMP 98.9
--- NOTE | 2016-09-04 07:19 | SOAPPROG ---
SOAP Progress Note Assessment/Plan: Assessment: POD#4 AVR#25 Magna bioprosthesis, asc aortic replacement #24 hemashield graft, exploration for VSD, AtriClip ligation of left atrial appendage Severe AI with ? vegetation and dilated ascending aorta - Torn mobile leaflet edge mimicking vegetation. No enlargement of sinuses. Valve replaced with bioprosthesis and asc ao replaced with dacron interposition graft. Extubated in the OR. Stable early postop course. No pressor support, tachyarrhythmias, backup pacing, or significant volume overload. Antithrombotic prophylaxis with ASA alone. AF prophylaxis with oral amiodarone and BB uptitrated as tolerated. HTN - Preop control with BB and ARB. Transition to home BB regimen achieved. Plan reintro of low dose ARB for suboptimal BP control as indicated. Suspected membranous VSD - Not seen by intraop RYANN or direct exploration. Cerebrovascular disease s/p remote CVA without significant residua (rt sided dysesthesias) - Stable. No apparent focal neurologic deficits. Acute expected blood loss anemia - Stable. No blood products transfused. No evidence active bleeding. Fe suppl x 2 weeks. BPH with LUTS of urgency and straining - Stable without meds. Plan: Ok for discharge. Instructions re diet, meds, activity, f/u and wound care to be reviewed in presence of . 09/04/16 07:15 Subjective: Feels well. BMs x 2. Ready for home. Objective: Vital Signs Temp Pulse Resp BP Pulse Ox 37.2 C 84 18 122/84 H 95 09/04/16 07:11 09/04/16 07:11 09/04/16 07:11 09/04/16 07:11 09/04/16 07:11 Laboratory Results 09/03/16 06:05 09/04/16 05:10 09/03/16 09/04/16 09/05/16 05:59 05:59 05:59 Intake Total 2100 1000 Output Total 2575 4735 Balance -475 -6345 Cardioresp status stable. Ongoing upward creep of SBP addressed w inc BB. Almost off suppl O2. Vigorous diuresis. Now near baseline wt. Labs ok. Physical Exam - Physical Exam General Appearance: alert, no apparent distress Respiratory: lungs clear Cardiac/Chest: regular rate, rhythm, other (Sternotomy CDI) Abdomen: non-tender, soft Skin: warm/dry Extremities: other (no visible edema) ICD10 Worksheet Patient Problems: Problems Problem Status Onset Acute blood loss anemia Acute S/P AVR (aortic valve replacement) Acute S/P aortic aneurysm repair Acute Ascending aorta dilatation Chronic Severe aortic insufficiency Chronic
[2016-09-04 07:29] VITALS: O2SAT 88
[2016-09-04 07:54] LABS: HEMATOCRIT 25.8 % (40.0-51.0); HEMOGLOBIN 8.6 g/dL (13.7-17.5)
[2016-09-04] MEDS ORDERED: METOPROLOL SUCCINATE XR 100 MG TAB PO SCH (09:00)
[2016-09-04] MEDS ORDERED: METOPROLOL TARTRATE 50 MG TAB PO SCH (09:00)
[2016-09-04] MEDS: ROSUVASTATIN CALCIUM 40 MG TAB PO SCH (09:29)
[2016-09-04] MEDS: ASPIRIN 81 MG CHEWABLE TAB PO SCH (09:29)
[2016-09-04] MEDS: EZETIMIBE 10 MG TAB PO SCH (09:29)
[2016-09-04] MEDS: FERROUS SULFATE 325 MG TAB PO SCH (09:30)
[2016-09-04] MEDS: OMEGA-3 FATTY ACIDS 1,000 MG CAP PO SCH (09:30)
[2016-09-04] MEDS: MULTIVITAMINS 1 EACH TAB PO SCH (09:30)
[2016-09-04] MEDS: AMIODARONE HCL 200 MG TAB PO SCH (09:30)
[2016-09-04] MEDS: HYDROCODONE/APAP 5/325 TAB PO PRN (09:32)
[2016-09-04] MEDS: LATANOPROST 0.005% 2.5 ML OPHT DROPS EACHEYE SCH (09:33)
[2016-09-04] MEDS: SENNOSIDES/DOCUSATE SODIUM TAB PO SCH (09:33)
[2016-09-04] MEDS ORDERED: VALSARTAN 40 MG TAB PO PRN (10:00)
--- NOTE | 2016-09-04 12:26 | PDDCSUM ---
Discharge Summary Discharge Summary: DATE OF ADMISSION: 08/31/16 DATE OF DISCHARGE: 09/04/16 DISPOSITION: Home, self-care PRINCIPAL ADMISSION DIAGNOSES: 1. Severe aortic valve insufficiency 2. Dilated ascending aorta 3. Membranous ventricular septal defect suspected 4. Vegetation of the right coronary cusp of the aortic valve suspected PRINCIPAL DISCHARGE DIAGNOSES: 1. Ventricular septal defect excluded 2. Torn aortic valve leaflet with a flail segment 3. Status post aortic valve replacement with a bioprosthesis 4. Status post ascending aortic replacement with a dacron interposition graft 5. Status post prophylactic AtriClip ligation of the left atrial appendage 6. Acute expected blood loss anemia HISTORY OF PRESENT ILLNESS: 61 yo male with asymptomatic severe AI associated with a dilated ascending aorta referred for surgical intervention after found to have a 5 mm hypermobile echodensity concerning for a vegetation and/or for a source of emboli. Surface echo also suggestive of a membranous VSD of unclear clinical significance. No bacteremia, LVE, LVSD, obstructive CAD, or arrhythmias. PAST MEDICAL HISTORY: HTN; Dyslipidemia; Mild coronary and carotid atherosclerosis; Remote lacunar CVA with no residual functional deficits; BPH with LUTS of urgency and straining ; Glaucoma; Gastroesophageal reflux; Degenerative joint disease. MEDICATIONS ON ADMISSION: ASA 81 mg daily, Toprol XL 100 mg daily, Valsartan 160 mg daily, Crestor 40 mg daily, Fish Oil 1,000 mg daily, Xalatan 0.005% opht one gtt each eye nightly, MVI daily, Herbal supplement daily, Prevacid 30 mg daily prn, Ibuprofen 400 daily prn. ALLERGIES/SENSITIVITIES: NKDA CONSULTANTS: Pulmonology/critical care ([place]) PROCEDURES/IMAGIN/17 ([place]): Aortic valve replacement with a 25 mm Cameron Magna bioprosthesis. Ascending aortic replacement with a 24 mm Hemashield graft. Exploration for a ventricular septal defect. Prophylactic AtriClip ligation of the atrial appendage. 09/02 ([place]): Transthoracic echocardiogram. ABBREVIATED HOSPITAL COURSE BY ACTIVE PROBLEM LIST: 1. Severe AI with ? vegetation and dilated ascending aorta - Torn and partially mobile leaflet edge mimicking vegetation. No aortic root enlargement or aortic arch abnormalities. Valve replaced with a bioprosthesis and asc ao replaced with a dacron interposition graft. Extubated in the OR. Stable early postop course. No neurologic impairment, dysrhythmias or significant volume overload. Antithrombotic prophylaxis with ASA alone. AF prophylaxis with oral amiodarone and BB uptitrated as tolerated. 2. HTN - Preop control with BB and ARB. Transition to home BB regimen achieved. Low dose ARB to resume prn. 3. Suspected membranous VSD - Not seen by intraop RYANN or direct exploration. 4. Acute expected blood loss anemia - Stable. No blood products transfused. No evidence active bleeding. Fe suppl x 2 weeks. DISCHARGE CLINICAL INFORMATION: Sternum grossly stable. Sternotomy CDI, sutured, +Dermabond. HR 70s-80s. SBP 120s-130s. SpO2 84-88% RA, correcting to 95% on 2 Lpm O2. Wt 1.5kg above admission at 86.2 kilos. WBC 9.3, Hgb 8.6, HCT 25.8, Plt 136, Na 138, K 4.8, Cr 1.0 DISCHARGE MEDICATIONS: As on admission with the following adjustments: Hold Valsartan 160 mg daily NEW prescriptions: 1. Valsartan 40 mg BID prn SBP > 140. 2. Lasix 20 mg daily prn overnight weight gain > 2 lbs or progressive leg edema. 3. [place] 5/325 one-half to 2 tabs q 4-6 hrs prn incisional pain. 4. Ferrous sulfate 325 mg BID x 2 weeks. 5. Oxygen @ 1-2 Lpm continuously or as directed by SpO2. FOLLOW UP APPOINTMENTS: 1. CV surgery: with Dr Landa at [facility] . 2. Cardiology: with Dr Douglas at [facility] within 4-6 weeks. Appointment to be established during surgical visit. FOLLOW UP TESTING: CXR prior to surgical appointment.
== END 2016-09-04 12:29 | disposition home or self-care (01) | DRG 220 ==
LOC: F3N 05:55 → F2N 11:24 → F2W 09-01 16:00
PROVIDERS: ADMIT Thoracic Surgery (Cardiothoracic Vascular Surgery); ATTEND Thoracic Surgery (Cardiothoracic Vascular Surgery)
PROC: 02RX0JZ Replacement of Thoracic Aorta, Ascending/Arch with Synthetic Substitute, Open Approach (ICD-10-PCS; principal; 2016-08-31 07:15)
PROC: B245ZZ4 Ultrasonography of Left Heart, Transesophageal (ICD-10-PCS; principal; 2016-08-31 07:15)
PROC: 5A1221Z Performance of Cardiac Output, Continuous (ICD-10-PCS; principal; 2016-08-31 07:15)
PROC: 02L70CK Occlusion of Left Atrial Appendage with Extraluminal Device, Open Approach (ICD-10-PCS; principal; 2016-08-31 07:15)
PROC: 02RF0JZ Replacement of Aortic Valve with Synthetic Substitute, Open Approach (ICD-10-PCS; principal; 2016-08-31 07:15)
DX: I35.1 Nonrheumatic aortic (valve) insufficiency (principal); I77.810 Thoracic aortic ectasia; D62 Acute posthemorrhagic anemia; R73.9 Hyperglycemia, unspecified; E78.5 Hyperlipidemia, unspecified; I25.10 Atherosclerotic heart disease of native coronary artery without angina pectoris; I10 Essential (primary) hypertension; K21.9 Gastro-esophageal reflux disease without esophagitis; N40.1 Benign prostatic hyperplasia with lower urinary tract symptoms; R39.15 Urgency of urination; R39.16 Straining to void; H40.9 Unspecified glaucoma; Z86.73 Personal history of transient ischemic attack (TIA), and cerebral infarction without residual deficits
CPT/HCPCS: 82947-QW; 97116-GP; 97161-GP; 97165-GO; 97530-GP; 97535-GO; C1768; J0153; J0282; J0690; J1100; J1265; J1644; J1815; J1885; J1940; J2001; J2150; J2250; J2260; J2370; J2405; J2704; J2720; J2765; J2930; J3010; J7060; P9041

== ENCOUNTER → 2016-09-08 | Outpatient (CLI) | payer OTHER | LOC: FIMAGING 12:36 | PROVIDERS: ATTEND Thoracic Surgery (Cardiothoracic Vascular Surgery) | DX: Z95.2 Presence of prosthetic heart valve (principal); Z98.890 Other specified postprocedural states ==

== ENCOUNTER → 2016-11-13 | Outpatient (CLI) | payer OTHER ==
[~2016-11-13] MED LIST: IOPAMIDOL (ISOVUE 370) 100 ML BTL IV ONE
== END ==
LOC: FIMAGING 15:48
PROVIDERS: ATTEND Internal Medicine
DX: J90 Pleural effusion, not elsewhere classified (principal); I25.10 Atherosclerotic heart disease of native coronary artery without angina pectoris; I25.84 Coronary atherosclerosis due to calcified coronary lesion
CPT/HCPCS: Q9967

== ENCOUNTER → 2018-05-05 | Outpatient (CLI) | payer OTHER | LOC: FIMAGING 08:01 | PROVIDERS: ATTEND Urology | DX: N39.0 Urinary tract infection, site not specified (principal) ==